=== PATIENT | female | born 1945 | race Caucasian/White ===

== ENCOUNTER → 2017-10-18 | Outpatient (CLI) | payer OTHER ==
[~2017-10-18] MED LIST: ALDACTONE100 MG PO; AMOX1TAB12 PO; BUMEX PO; CLONAZEPAM1 MG PO; DOCUSATE SODIU100 MG PO; FOSAMAX70 MG PO; GABAPENTIN800 MG PO; GLIPIZIDE PO; INDUR PO; MULTI VITAMIN1 EACH PO; PANTOPRAZOLE SO20 MG PO; PERCOCET 5-3251 EACH PO; TYLENOL CODEINE PO
== END | disposition home or self-care (01) ==
LOC: RAD 11:54
DX: M48.07 Spinal stenosis, lumbosacral region (principal); Z98.1 Arthrodesis status

== ENCOUNTER → 2018-02-07 | Outpatient (CLI) | payer OTHER | END | disposition home or self-care (01) | LOC: RAD 07:56 | DX: M43.10 Spondylolisthesis, site unspecified (principal); Z98.1 Arthrodesis status ==

== ENCOUNTER 2018-08-08 07:56 | Outpatient (CLI) | payer OTHER | END 2018-08-08 07:57 | disposition home or self-care (01) | LOC: RAD 07:56 | DX: M43.16 Spondylolisthesis, lumbar region (principal); Z98.1 Arthrodesis status ==